=== PATIENT | male | born 1980 | race Two or more races ===

== ENCOUNTER 2017-02-09 23:53 | Emergency (ER) | payer SELFPAY ==
[2017-02-10 00:03] VITALS: TEMP 98.4
--- NOTE | 2017-02-10 00:07 | CPEKG ---
Heart Rate: 48 RR Interval: 1250 P-R Interval: 148 QRSD Interval: 78 QT Interval: 428 QTC Interval: 383 P [place]: 10 QRS [place]: 85 T Wave [place]: 68 EKG Severity - OTHERWISE NORMAL ECG - EKG Impression: SINUS BRADYCARDIA Electronically Signed By: Yesenia Padilla 10-Feb-2017 06:46:24
[2017-02-10] MEDS ORDERED: FAMOTIDINE 20 MG/NACL 50 ML IV ONE (00:37)
[2017-02-10] MEDS ORDERED: MAG HYDROX/AL HYDROX/SIMETH 30 ML UDCUP PO ONE (00:37)
[2017-02-10] MEDS ORDERED: NS 1,000 ML IV ONE (00:49)
--- NOTE | 2017-02-10 01:03 | EDPHY ---
H & P Stated Complaint: Chest pain, abdominal pain Time Seen by Provider: 02/10/17 00:21 HPI/ROS: HPI The patient presents with left-sided chest pain which she describes as a heartburn which has been present for the last 1 month though became worse tonight after an episode of vomiting. The pain is burning in nature, in his low left anterior chest, does not radiate and is not associated with meals. He denies any shortness of breath. He denies injury. Denies any rash. Denies any coughing. He has no prior history of similar pain.. REVIEW OF SYSTEMS Constitutional: No fever, no chills. Eyes: No discharge. ENT: No sore throat. Cardiovascular: Positive for chest pain, no palpitations. Respiratory: No cough, no shortness of breath. Gastrointestinal: No abdominal pain, no vomiting. Genitourinary: No hematuria. Musculoskeletal: No back pain. Skin: No rashes. Neurological: No headache. PMHx: Healthy, no diabetes Soc Hx: 1 pack per day smoker, homeless FHx: PHYSICAL General Appearance: Alert, no distress Eyes: Pupils equal and round no pallor or injection ENT, Mouth: Mucous membranes moist Respiratory: There are no retractions, lungs are clear to auscultation Cardiovascular: Regular rate and rhythm Chest wall: There is tenderness to palpation of the left anterior lower chest wall Gastrointestinal: Abdomen is soft and non-tender, no masses, bowel sounds normal Neurological: A&O, moves all extremities Skin: Warm and dry, no rashes Musculoskeletal: Neck is supple non tender Extremities: symmetrical, full range of motion Psychiatric: Patient is oriented X 3, there is no agitation Source: Patient Exam Limitations: No limitations - Personal History Current Tetanus/Diphtheria Vaccine: No Current Tetanus Diphtheria and Acellular Pertussis (TDAP): No - Medical/Surgical History Hx Asthma: No Hx Chronic Respiratory Disease: No Hx Diabetes: No Hx Cardiac Disease: No Hx Renal Disease: No Hx Cirrhosis: No Hx Alcoholism: No Hx HIV/AIDS: No Hx Splenectomy or Spleen Trauma: No - Social History Smoking Status: Light smoker Constitutional: Initial Vital Signs Heart Rate 51 L 02/09/17 23:57 Respiratory Rate 18 02/09/17 23:57 Blood Pressure 145/92 H 02/09/17 23:57 O2 Sat (%) 99 02/09/17 23:57 O2 Delivery Mode Room Air Medical Decision Making - Diagnostics EKG Interpretation: EKG: Complete interpretation has been separately recorded in the [facility] archive. Summary impression: Normal sinus rhythm, rate 48 Imaging Results: Chest x-ray two view shows no cardiomegaly, no infiltrate, no fracture, interpreted by me, radiology interpretation is pending. Imaging: I viewed and interpreted images myself Differential Diagnosis: 36-year-old male, heavy smoker, homeless, presents brought in by ambulance for chest pain which he describes as a heartburn like sensation in his left chest. It is been ongoing for the last 1 month. It is nonexertional not associated with shortness of breath, nausea, dizziness. Differential diagnosis includes GERD, gastroenteritis, costochondritis, occult rib fracture, less likely ACS. In the emergency room chest x-ray and EKG were performed and were both unremarkable. Patient was given Maalox and famotidine with some improvement in his symptoms. When I discussed discharge planning with him he became quite irate, upset that I could not provide him with a taxi voucher back to the halfway. He began yelling and screaming. Security had to be called any had to be restrained. Police arrested him and him to group home. - Data Points Medications Given: Discontinued Medications Al Hydroxide/Mg Hydroxide (Maalox Susp) 30 ml PO EDNOW ONE Stop: 02/10/17 00:38 Last Admin: 02/10/17 00:46 Dose: 30 ml Famotidine/Sodium Chloride (Pepcid 20 Mg (Premix)) 50 mls @ 200 mls/hr IV EDNOW ONE Stop: 02/10/17 00:51 Last Admin: 02/10/17 00:46 Dose: 50 mls Sodium Chloride (Ns) 1,000 mls @ 3,000 mls/hr IV ONCE ONE Stop: 02/10/17 01:08 Last Admin: 02/10/17 00:50 Dose: 1,000 mls Departure - Departure Disposition: Home, Routine, Self-Care Clinical Impression: Chest pain Qualifiers: Chest pain type: unspecified Qualified Code(s): R07.9 - Chest pain, unspecified Condition: Good Instructions: Chest Pain (ED) Additional Instructions: Please return to the emergency department if your worse in any way. Referrals: [facility],. [Clinic] - As per Instructions
[2017-02-10 01:49] VITALS: BP 130/85; PULSE 50; RESP 19; O2SAT 95
== END 2017-02-10 01:49 | disposition home or self-care (01) ==
DX: R07.9 Chest pain, unspecified (principal); F17.200 Nicotine dependence, unspecified, uncomplicated; E86.9 Volume depletion, unspecified
CPT/HCPCS: 96365